=== PATIENT | male | born 1960 | race Caucasian/White ===

== ENCOUNTER → 2017-10-16 | Day surgery (SDC) | payer OTHER ==
[2017-10-09 09:22] LABS: BASOPHILS # (AUTO) 0.1 (0.0-0.1); BASOPHILS % 0.9 % (0.0-1.0); EOSINOPHILS # (AUTO) 0.1 (0.0-0.4); EOSINOPHILS % 2.3 % (0.0-6.0); HEMATOCRIT 41.4 % (38.2-49.6); HEMOGLOBIN 13.3 g/dL (14.0-18.0); LYMPHOCYTES # (AUTO) 1.9 (1.0-3.2); LYMPHOCYTES % 32.2 % (18.0-39.1); MEAN CORPUSCULAR HEMOGLOBIN 27.7 pg (28-32); MEAN CORPUSCULAR HGB CONC 32.1 g/dL (31-35); MEAN CORPUSCULAR VOLUME 86.1 fL (81-99); MONOCYTES # (AUTO) 0.7 (0.2-0.8); MONOCYTES % 11.3 % (4.4-11.3); NEUTROPHILS # (AUTO) 3.1 (2.1-6.9); NEUTROPHILS % 53.1 % (38.7-80.0); PLATELET COUNT 98 x10e3/uL (140-360); RED BLOOD COUNT 4.81 x10e6/uL (4.3-5.7); RED CELL DISTRIBUTION WIDTH 12.9 % (11.7-14.4)
[2017-10-09 10:09] LABS: ANION GAP 12.3 mmol/L (8-16); BLOOD UREA NITROGEN 17 mg/dL (7-26); BUN/CREATININE RATIO 14 (6-25); CALCIUM 9.8 mg/dL (8.4-10.2); CARBON DIOXIDE 23 mmol/L (22-29); CHLORIDE 110 mmol/L (98-107); CREATININE, SERUM 1.21 mg/dL (0.72-1.25); EST GLOMERULAR FILTRATION RATE > 60 ML/MIN (60-); GLUCOSE 178 mg/dL (74-118); POTASSIUM 4.3 mmol/L (3.5-5.1); SODIUM 141 mmol/L (136-145)
--- NOTE | 2017-10-09 10:12 | Diagnostic Imaging Report ---
PROCEDURE: X-RAY CHEST, TWO VIEWS COMPARISON: None. INDICATIONS: PRE OPERATIVE FINDINGS: LUNGS: No consolidations or edema. PLEURA: No effusions or pneumothorax. HEART \T\ MEDIASTINUM: The heart is within normal size-limits. BONES \T\ SOFT TISSUES: No acute findings. Nondescript calcifications below the diaphragm within the abdomen noted only on the lateral view. CONCLUSION: No acute thoracic abnormality. Jose Andre D.O. Dictated by: Jose Andre D.O. on 10/09/2017 at 10:19 Electronically approved by: Jose Andre D.O. on 10/09/2017 at 10:19
[~2017-10-16] MED LIST: BACITRACIN 50,000 UNIT VIAL ONE; CEFTRIAXONE SOD 1 GM VIAL ONE; CRESTOR10 MG PO; DEXAMETHASONE SOD PHOS INJ 4 MG/ML VIAL ONE; FENOFIBRATE145 MG PO; FENTANYL CITRATE/PF 100MCG/2 ML INJ ONE; KETOROLAC TROMETHAMINE 30 MG/ML VIAL ONE; LIDOCAINE HCL 1% LOCAL INJ 20 ML VIAL ONE; LIDOCAINE HCL 2% LOCAL INJ 5 ML SDV VIAL INJ ONE; LOSARTAN POTAS100 MG PO; MELOXICAM7.5 MG PO; MIDAZOLAM HCL 2 MG/2 ML VIAL ONE; NOVOLOG100 UNIT/1; ONDANSETRON HCL INJ 2 MG/ML VIAL ONE; PROPOFOL IV EMULSION 10 MG/ML 20 ML VIAL ONE; SEVOFLURANE INHAL SOLN 250 ML PEN BTL ONE; SYNTHROID125 MCG PO
[2017-10-16 11:40] VITALS: BP 109/61
--- NOTE | 2017-11-15 18:36 | Operative Report ---
DATE OF PROCEDURE: October 16, 2017 PREOPERATIVE DIAGNOSIS: Organic erectile dysfunction. POSTOPERATIVE DIAGNOSIS: Organic erectile dysfunction. PROCEDURE PERFORMED: Placement of a Malleable Penile Prosthesis. ANESTHESIA: General anesthesia. ESTIMATED BLOOD LOSS: Minimal. INDICATIONS: Mr. Neal Cruz is a 57-year-old gentleman with a long history of insulin-dependent diabetes mellitus and erectile dysfunction, which has failed conservative management. He now presents for definitive surgical management of this problem. OPERATIVE PROCEDURE IN DETAIL: The patient was brought into the operating room and placed in supine position. After initiation of general anesthesia, he was prepped and draped in usual sterile fashion. A Ying catheter was placed and the balloon inflated. This was drained and then clamped for the remainder of the procedure. A penoscrotal incision was made at the midline and dissection was carried out through the layers of the penis. A corporeal incision was made first on the right side then subsequently on the left side, and the cavernosal bodies were dilated proximally and distally. The total length of the cavernosal bodies was approximately 22 cm on both sides. The prosthesis initially tolerate dilation up to 14-Hebrew, but an attempted placement of 14 mm prosthetic device allowed little mobility of the penis. A decision was then made to remove this and replace it with a 12 mm Spectra prosthesis. This was placed on both sides without difficulty. There was improved penile mobility and no significant penile pain or problem noted with this in place. The corporeal bodies were then copiously irrigated with antibiotic solution and sewn using a running PDS suture. The wound was then copiously irrigated again and closed in layers. Skin being closed with a running Monocryl stitch. The wounds were then cleaned and dried and covered with Mastisol and Steri-Strips. A Tegaderm was placed over the penoscrotal incision. The Ying catheter was removed and the anesthesia was reversed. The patient will be transferred to a bed and taken to the postanesthesia care unit in good condition. Of note, the needle and instrument counts were correct at the conclusion of the case. Job#: [id number] MAXINE
--- OUTSIDE RECORDS SUMMARY | 2017-11-20 05:09 | XMS REPORT | Summary of Care ---
Author Author [facility]gent [facility] Urgent [facility] Address Unknown Phone Unavailable Encounter JD Hobson(FIN) [id number] Date(s): 05/18/17 - 05/18/17 Urgent [facility] [address] [place], [place] [address] [phone] Discharge Disposition: Home or Self Care Attending Physician: Enmanuel Mcgill MD Vital Signs Most recent to 1 oldest [Reference Range]: Height 175.26 cm (05/18/17 5:20 PM) Temperature Oral 98.2 DegF [96.4-99.1 DegF] (05/18/17 5:20 PM) Blood Pressure 132/82 mmHg [90-140/60-90 mmHg] (05/18/17 5:20 PM) Respiratory Rate 16 BRMIN [14-20 BRMIN] (05/18/17 5:20 PM) Weight 100.909 kg (05/18/17 5:20 PM) Body Mass Index 32.85 m2 (05/18/17 5:20 PM) Problem List Condition Effective Dates Status Health Status Informant Diabetes(Confirmed) Resolved Diabetes mellitus Active type 2(Confirmed)1 Hodgkin Resolved lymphoma(Confirmed) Hypothyroid(Confirme Resolved d) Simple Active obesity(Confirmed) 1Automatically added by Discern Expert with order of Add Problem Diabetes Type II on November 30, 2016 13:36:33 CDT with order ID: [id number] entered by Enmanuel Mcgill. Allergies, Adverse Reactions, Alerts Substance Reaction Severity Status Zyban Active Medications alfuzosin 10 mg oral tablet, extended release 10 mg=1 tab, PO, Daily, # 30 tab, 0 Refill(s) Start Date: 05/18/17 Status: Ordered meloxicam 15 mg oral tablet 15 mg=1 tab, PO, Daily, # 30 tab, 0 Refill(s) Start Date: 05/18/17 Status: Ordered Results No data available for this section Immunizations No data available for this section Procedures No data available for this section Social History Social History Type Response Smoking Status Former smoker; Exposure to Tobacco Smoke None; Cigarette Smoking Last 365 Days No; Reg Smoking Cessation Counseling No; Other Tobacco Frequency stopped smoking 6 years; entered on: 05/18/17 Assessment and Plan No data available for this section
--- OUTSIDE RECORDS SUMMARY | 2017-11-20 05:09 | XMS REPORT | Summary of Care ---
Author Author Urgent Care [facility] Urgent [facility] Address Unknown Phone Unavailable Encounter JD Hobson(RASHARD) [id number] Date(s): 04/16/17 - 04/16/17 Urgent [facility] [address] [place], [place] [address] [phone] Discharge Disposition: Home or Self Care Attending Physician: Enmanuel Mcigll MD Vital Signs Most recent to 1 2 oldest [Reference Range]: Height 172.72 cm (04/16/17 10:21 AM) Temperature Oral 97.9 DegF [96.4-99.1 DegF] (04/16/17 10:21 AM) Blood Pressure 128/78 mmHg [90-140/60-90 mmHg] (04/16/17 10:21 AM) Respiratory Rate 1 BRMIN 18 BRMIN [14-20 BRMIN] *LOW* (04/16/17 9:02 AM) (04/16/17 10:21 AM) Peripheral Pulse 72 bpm Rate [60-100 bpm] (04/16/17 10:21 AM) Weight 99.091 kg (04/16/17 10:21 AM) Body Mass Index 33.22 m2 (04/16/17 10:21 AM) Problem List Condition Effective Dates Status Health Status Informant Diabetes(Confirmed) Resolved Diabetes mellitus Active type 2(Confirmed)1 Hodgkin Resolved lymphoma(Confirmed) Hypothyroid(Confirme Resolved d) Simple Active obesity(Confirmed) 1Automatically added by Discern Expert with order of Add Problem Diabetes Type II on November 30, 2016 13:36:33 CDT with order ID: [id number] entered by Enmanuel Mcgill. Allergies, Adverse Reactions, Alerts Substance Reaction Severity Status Zyban Active Medications predniSONE 20 mg oral tablet 40 mg=2 tab, PO, Daily, X 7 day, # 14 tab, 0 Refill(s), Pharmacy: [facility]/pharmacy # [id number] Start Date: 04/16/17 Stop Date: 04/23/17 Status: Completed Results No data available for this section [...]
--- OUTSIDE RECORDS SUMMARY | 2017-11-20 05:09 | XMS REPORT | Summary of Care ---
Author Author [facility] Neurology [facility] Organization [facility] Address Unknown Phone Unavailable Encounter HQ Encntr_alias(FIN) [id number] Date(s): 08/28/17 - 08/29/17 [facility] [address] [place] [address]- [phone] Vital Signs No data available for this section Problem List Condition Effective Dates Status Health Status Informant Diabetes(Confirmed) Resolved Diabetes mellitus Active type 2(Confirmed)1 Hodgkin Resolved lymphoma(Confirmed) Hypothyroid(Confirme Resolved d) Simple Active obesity(Confirmed) 1Automatically added by Discern Expert with order of Add Problem Diabetes Type II on November 30, 2016 13:36:33 CDT with order ID: [id number] entered by Enmanuel Mcgill. Allergies, Adverse Reactions, Alerts Substance Reaction Severity Status Zyban Active Medications No data available for this section Results No data available for this section [...]
--- OUTSIDE RECORDS SUMMARY | 2017-11-20 05:09 | XMS REPORT | Continuity of Care Document ---
Author Author [facility] Organization [facility] Address Unknown Phone Unavailable Care Team Providers Care Refueler Name Role Phone Riley PEOPLES, Chuck TRIMBLE Unavailable Insurance Providers Payer name Policy type / Coverage type Policy ID Covered democrat ID Policy Price [facility] Encounters Encounter Performer Location Date Office Visit [facility] Jun 04, 2012 Allergies, Adverse Reactions, Alerts Type Substance Reaction Status Drug allergy ZYBAN Active Problems Problem Effective Dates Problem Status DIABETES, TYPE II Jun 03, 2012 Active KNEE PAIN, RIGHT Jun 03, 2012 Active HYPERCHOLESTEROLEMIA Active Medications Medication Instructions Start Date Status INSULIN MEDICATION NAME UNKNOWN per other M.D. Jun 03, 2012 Active METFORMIN HCL TABS per other M.D. Jun 03, 2012 Active TRILIPIX CPDR per other M.D. Jun 03, 2012 Active GLIPIZIDE TABS per other M.D. Jun 03, 2012 Active PIOGLITAZONE HCL TABS per other M.D. Jun 03, 2012 Active ADVORSTEN DIABETES MED as directed per other M.D. Active Immunizations Vaccine Date Status heptavalent pneumococcal conjugate vaccine (7-valent) #1 Jun 04, 2012 completed heptavalent pneumococcal conjugate vaccine (7-valent) #2 Jun 04, 2012 completed Vital Signs Date Description Test Result Jun 04, 2012 height E&M - 8302-2 HEIGHT 69 in Jun 04, 2012 weight E&M - 3141-9 WEIGHT 222 lb Jun 04, 2012 pulse rate E&M - 8867-4 PULSE RATE 83 /min Jun 04, 2012 blood pressure, systolic - 8480-6 BP SYSTOLIC 143 mm Hg Jun 04, 2012 blood pressure, diastolic - 8462-4 BP DIASTOLIC 87 mm Hg
--- OUTSIDE RECORDS SUMMARY | 2017-11-20 05:09 | XMS REPORT ---
Author [facility] Address Unknown Phone Unavailable Care Team Providers Care Teaching Young Name Role Phone SHALINI PELLETIER Unavailable Unavailable Problems This patient has no known problems. Allergies, Adverse Reactions, Alerts This patient has no known allergies or adverse reactions. Medications This patient has no known medications. Results Test Description Test Time Test Comments Text Results Atomic Results Result Comments CHEST 2 VIEWS 2017-10-09 10:19:00 [place] [address] Patient Name: CÉSAR ZAVALA MR #: [id number] : 1960 Age/Sex: 57/M Req #: [id number] [facility] Physician: Ordered by: SHALINI PELLETIER MD Report #: [id number] Location: OR Room/Bed: Procedure: [id number] DX/CHEST 2 VIEWS Exam Date: 10/09/17 Exam Time: 918 REPORT STATUS: Signed PROCEDURE: X-RAY CHEST, TWO VIEWS COMPARISON: None. INDICATIONS: PRE OPERATIVE FINDINGS: LUNGS: No consolidations or edema. PLEURA: No effusions or pneumothorax. HEART T MEDIASTINUM: The heart is within normal size- limits. BONES T SOFT TISSUES: No acute findings. Nondescript calcifications below the diaphragm within the abdomen noted only on the lateral view. CONCLUSION: No acute thoracic abnormality. Frances Andre D.O. Dictated by: Frances Andre D.O. on 10/09/2017 at 10:19 Electronically approved by: Frances Andre D.O. on 10/09/2017 at 10:19 Dictated By: FRANCES ANDRE DO 1019 Transcribed By: PANKAJ on 10/09/17 1019 COPY TO: SHALINI PELLETIER MD
--- OUTSIDE RECORDS SUMMARY | 2017-11-20 05:09 | XMS REPORT | Continuity of Care Document ---
Author Author [facility] Organization [facility] Address Unknown Phone Unavailable Care Team Providers Care Gizzard Skin Remover Name Role Phone Riley PEOPLES, Chuck TRIMBLE Unavailable Insurance Providers Payer name Policy type / Coverage type Policy ID Covered green party ID Policy Price [facility] Options [id number] Encounters Encounter Performer Location Date Office Visit [facility] Nov 05, 2012 Allergies, Adverse Reactions, Alerts Type Substance Reaction Status Drug allergy ZYBAN Active Problems Problem Effective Dates Problem Status DIABETES, TYPE II Jun 03, 2012 Active KNEE PAIN, RIGHT Jun 03, 2012 Active HYPERCHOLESTEROLEMIA Active HIP PAIN, LEFT Active BACK PAIN, LUMBAR Active Medications Medication Instructions Start Date Status [...] MED as directed per other M.D. Active FLEXERIL 10 MG TABS 1 PO TID prn muscle spasm Nov 05, 2012 Active VOLTAREN 50 MG TBEC (DICLOFENAC SODIUM) 1 tab po bid Nov 05, 2012 Active MUSCULOSKELETAL PAIN, INFLAMMATION II Flurbiprofen 20%, Baclofen 2%, Cyclobenzaprine 2%, Gabapentin 6%, Lidocaine 5% Apply 1-2 grams to affected area 3-4 times per day as needed Nov 05, 2012 Active Immunizations Vaccine Date Status heptavalent pneumococcal [...]
== END | disposition home or self-care (01) ==
LOC: OR 06:06
PROVIDERS: ATTEND Urology
DX: N52.8 Other male erectile dysfunction (principal); N40.1 Benign prostatic hyperplasia with lower urinary tract symptoms; E11.9 Type 2 diabetes mellitus without complications; I10 Essential (primary) hypertension; C85.80 Other specified types of non-Hodgkin lymphoma, unspecified site; E78.5 Hyperlipidemia, unspecified; Z88.8 Allergy status to other drugs, medicaments and biological substances; Z01.810 Encounter for preprocedural cardiovascular examination; Z01.812 Encounter for preprocedural laboratory examination; Z01.818 Encounter for other preprocedural examination; Z79.4 Long term (current) use of insulin; Z87.891 Personal history of nicotine dependence
CPT/HCPCS: 54400; C2622; 36415; 71046; 80048; 82948; 85025; 93005; J0696; J1100; J1885; J2001; J2250; J2405